=== PATIENT | male | born 1945 | race Caucasian/White ===

== ENCOUNTER 2017-10-02 09:08 | Outpatient (CLI) | payer MEDICARE, OTHER ==
--- NOTE | 2017-10-02 16:01 | NM ---
WHOLE BODY BONE SCAN: Date: 10/02/17 COMPARISON: 10/28/16. HISTORY: Malignant neoplasm of prostate gland, secondary malignant neoplasm of bone. TECHNIQUE: Following the intravenous administration of 33 mCi technetium-99m labeled MDP, anterior and posterior whole body imaging is obtained. FINDINGS: There is physiologic activity within the kidneys and urinary bladder. There is a questionable new subtle lesion within the mid shaft of the left tibia. There are subtle pu nctate new foci of radiotracer activity within the mid shaft to distal shaft of the right femur. Ther e is a new lesion within the proximal right femur medially, in the region of the lesser trochanter. There is a questionable new punctate focus of radiotracer activity in the region of the acetabulum on the left just lateral to the inferior aspect of the urinary bladder. Numerous bilateral rib lesions are noted, some of which are new when compared to the prior exam. The intensity of some of the rib lesions seen on the 10/28/16 examination have decreased. The lesion involving the inferior aspect of the left scapula has decreased in conspicuity since the p rior exam. A lesion overlying the superior aspect of the right scapular medially on the prior examina tion has decreased in conspicuity as well. There is a new lesion within the mid shaft of the left humerus. There are numerous calvarial lesions, some of which are new when compared to the prior exam. However, the most prominent area of radiotracer activity overlying the inferior aspect of the calvarium on th e right on the prior examination is less conspicuous. There are numerous foci of increased radiotracer activity within the thoracic and lumbar spine. Some of these lesions are less conspicuous than on the prior exam. However, there are probable new lesions within the L1 and L2 vertebral bodies and a lesion in the region of the L3 vertebral body appears mo re conspicuous. IMPRESSION: Findings suggesting a mixed response to therapy. There are multiple new lesions identified. Some of t he lesions present on the prior examination have decreased in conspicuity. 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 POS: DENIZ
== END 2017-10-02 09:09 | disposition home or self-care (01) ==
LOC: NM 09:08
PROVIDERS: ATTEND Internal Medicine Hematology & Oncology
DX: C61 Malignant neoplasm of prostate (principal); C79.51 Secondary malignant neoplasm of bone
CPT/HCPCS: 78306; A9503

== ENCOUNTER 2017-11-22 09:17 | Outpatient (CLI) | payer MEDICARE, OTHER ==
--- NOTE | 2017-11-22 11:12 | ULT ---
RENAL ULTRASOUND: Date: 11-22-17 Comparison: None. History: Metastatic malignant neoplasm to prostate. Technique: Multiplanar grayscale sonographic imaging of the kidneys and urinary bladder obtained. FINDINGS: There are multiple incompletely assessed hypoechoic lesions associated with the right lobe of the amanda er, the majority of which appear cystic in nature but are complex with areas of internal probable sep tation. Dedicated imaging of the liver is advised for full assessment. The right kidney measures approximately 11.7 x 6.2 x 4.3 cm. There is a questionable incompletely ass essed cyst measuring 7 mm within the upper pole of the right kidney. No right sided hydronephrosis or solid renal mass noted on the right. The left kidney measures 11.8 x 5.4 x 4.5 cm. There is a probable cyst emanating from the lower pole of the left kidney measuring in the 2.7 cm range. There are lobulated masses associated with the urinary bladder base which may represent a markedly ir regular heterogenous and enlarged prostate gland herniating into the bladder base. Cross sectional im aging may be beneficial for full characterization. No solid renal mass or hydronephrosis seen on the left. IMPRESSION: 1. Incompletely assessed hypoechoic lesions within the liver. CT examination is advised. 2. Probable small cyst within the right kidney. Left renal cyst measure up to 2.7 cm. 3. Lobulated soft tissue masses at the bladder base, presumably on the basis of prostate heterogeneit y and lobulation herniating into the bladder base. This could be best assessed via CT examination as well. Code T POS: DENIZ
== END 2017-11-22 09:18 | disposition home or self-care (01) ==
LOC: ULT 09:17
PROVIDERS: ATTEND Urology
DX: C79.82 Secondary malignant neoplasm of genital organs (principal); K76.9 Liver disease, unspecified; N32.89 Other specified disorders of bladder
CPT/HCPCS: 76770